=== PATIENT | male | born 2000 | race Caucasian/White ===

== ENCOUNTER 2019-01-02 18:57 | Emergency (ER) | payer MEDICAID ==
[~2019-01-02] VITALS: Ht 175.3 cm; Wt 106.6 kg
[2019-01-02 19:19] VITALS: Ht 175.3 cm; Wt 106.6 kg
[2019-01-02 20:15] VITALS: BP 147/85
== END 2019-01-02 20:15 | disposition home or self-care (01) ==
LOC: ED 18:57
DX: J45.909 Unspecified asthma, uncomplicated (principal); R51 Headache
CPT/HCPCS: Q0092

== ENCOUNTER 2020-06-02 16:06 | Emergency (ER) | payer OTHER, SELFPAY ==
[~2020-06-02] VITALS: Ht 175.3 cm; Wt 108.9 kg
[2020-06-02 16:09] VITALS: Ht 175.3 cm; Wt 108.9 kg
[2020-06-02 18:06] VITALS: BP 132/90
== END 2020-06-02 18:06 | disposition home or self-care (01) ==
LOC: ED 16:06
DX: U07.1 COVID-19 (principal); J45.909 Unspecified asthma, uncomplicated; R19.7 Diarrhea, unspecified
CPT/HCPCS: U0003